=== PATIENT | male | born 1990 | race Caucasian/White ===

== ENCOUNTER 2022-05-15 00:04 | Emergency (ER) | payer SELFPAY ==
[~2022-05-15] VITALS: Ht 188 cm; Wt 93.0 kg
[2022-05-15 00:17] VITALS: BP 123/77
[2022-05-15] MEDS ORDERED: IBUPROFEN 600 MG TABLET PO ONE (00:30)
[2022-05-15] MEDS ORDERED: CLINDAMYCIN HCL 150 MG CAPSULE PO ONE (00:30)
[2022-05-15] MEDS ORDERED: IBUPROFEN 200 MG TABLET ONE (00:34)
[2022-05-15] MEDS ORDERED: IBUPROFEN 600 MG TABLET ONE (00:34)
[2022-05-15] MEDS ORDERED: CLINDAMYCIN HCL 150 MG CAPSULE ONE (00:34)
[2022-05-15] MEDS ORDERED: IBUPROFEN 400 MG TABLET ONE (00:34)
[2022-05-15] MEDS ORDERED: CLIN300C12 PO (00:38)
--- NOTE | 2022-05-15 00:39 | NUR ---
Patient discharged to home in stable condition. Written and verbal after care instructions given. Patient verbalizes understanding of instruction.
== END 2022-05-15 00:39 | disposition home or self-care (01) ==
LOC: ER 00:08
DX: L03.011 Cellulitis of right finger (principal); Z60.2 Problems related to living alone